=== PATIENT | male | born 1980 | race Caucasian/White ===

== ENCOUNTER 2017-04-01 22:35 | Emergency (ER) | payer OTHER ==
[2017-04-01 22:42] VITALS: BMI 25.7
--- NOTE | 2017-04-01 23:06 | DR.GENAD ---
HPI - PCP Primary Care Physician: NFD - Complaint/Symptoms Chief Complaint Doctors Comments: Patient fromt the alf injured himself by falling on a metal object sustaine a 5cm superficial laceration to the right deltoid just prior to being seen. Chief Complaint:: LACERATION TO RIGHT SHOULDER - Source History Provided: Patient, Other - Mode of Arrival Mode of Arrival: Ambulatory - Timing Onset of Chief Complaint: 04/01/17 PMH - PMH Past Medical History: No Past Surgical History: No - Family History History of Family Medical Conditions: Yes Family Medical History: Diabetes Mellitus, Cancer, Hypertension - Social History Does any household member use tobacco: No Alcohol Use: None Do you use any recreational Drugs:: No Lives With: Other Lives Where: [facility] - infectious screening In the last 2 months have you had wt loss of >10#?: NO Have you had fever, night sweats or hemotysis?: No Have you traveled outside the country in the last 6 months?: No Isolation: Standard ROS - Review of Systems Eyes: No Symptoms Reported ENTM: No Symptoms Reported Respiratoy: No Symptoms Reported Cardiovascular: No Symptoms Reported Gastrointestinal/Abdominal: No Symptoms Reported Genitourinary: No Symptoms Reported Neurological: No Symptoms Reported Musculoskeletal: Shoulder (right shoulder laceration) Integumentary: Lesions (5cm laceration to right shoulder) Hematologic/Lymphatic: No Symptoms Reported Endocrine: No Symptoms Reported Psychiatric: No Symptoms Reported All Other Systems: Reviewed and Negative PE - Vital Signs Vitals: Blood Pressure 175/112 - General Limitations: No Limitations General Appearance: Alert - Head Head Exam: Normal Inspection, Atraumatic - Eyes Eye exam: Normal Appearance, PERRL, EOMI - ENT ENT Exam: Normal Exam External Ear Exam: Normal External Inspection TM/Canal Exam: Bilateral Normal Nose Exam: Normal Nose Exam, Sinus Tenderness Mouth Exam: Normal Inspection Throat Exam: Normal Inspection - Neck Neck Exam: Normal Inspection, Full ROM - Chest Chest Inspection: Normal Inspection - Respiratory Respiratory Exam: Normal Lung Sounds Bilat Respiratory Exam: Bilateral Clear to Auscultation - Cardiovascular Cardiovascular Exam: Regular Rate, Normal Rhythm - Abdominal Exam Abdominal Exam: Normal Inspection, Normal Bowel Sounds Abdominal Tenderness: negative: RUQ, RLQ, LUQ, LLQ, Epigastrium, Suprapubic, Diffuse, Mild, Moderate, Severe, Other - Extremities Extremities Exam: Normal Inspection, Full ROM - Back Back Exam: Normal Inspection, Full ROM - Neurologic Neurological Exam: Alert, Oriented X3, CN II-XII Intact - Psychiatric Psychiatric Exam: Normal Affect, Normal Mood - Skin Skin Exam: Warm, Dry, Other (laceratio of 5cm to right deltoid) Course - Reevaluation 1st: Improved - Education/Counseling Educated On: Diagnosis, Prognosis Procedures - Laceration/Wound Repair Right Shoulder Wound Length (cm): 5 Wound's Depth, Shape: Superficial, Linear Wound Explored: no foreign body removed Betadine Prep?: Yes Anesthesia: 1% Lidocaine w/ Epi (10) Suture Size/Type: 3:0, [place] Number of Sutures: 12 Layer Closure?: No Sterile Dressing Applied?: Yes - Diagnosis Discharge Problem: Laceration of superficial vein at shoulder and upper arm level, right arm, initial encounter - Discharge Plan Condition: Stable - Follow ups/Referrals Follow ups/Referrals: NFD,None [Primary Care Provider] - 3 days - Instructions
[2017-04-01 23:23] VITALS: BP 161/83
== END 2017-04-01 23:17 | disposition home or self-care (01) ==
LOC: ER 22:55
PROC: 0XQ Anatomical Regions, Upper Extremities, Repair (ICD-10-PCS; principal; 2017-04-01)
DX: S45.3 Injury of superficial vein at shoulder and upper arm level (principal); W01.198A Fall on same level from slipping, tripping and stumbling with subsequent striking against other object, initial encounter; Y92.149 Unspecified place in prison as the place of occurrence of the external cause
CPT/HCPCS: 12002; 99282